=== PATIENT | female | born 1995 | race Caucasian/White ===

== ENCOUNTER 2017-01-25 10:40 | Emergency (ER) | payer OTHER ==
[2017-01-25] MEDS ORDERED: Ketorolac INJ* 30 MG/ML 1 ML VIAL ONE (11:27)
[2017-01-25] MEDS ORDERED: Ketorolac INJ* 30 MG/ML 1 ML VIAL IV PUSH ONE (11:27)
[2017-01-25 11:36] LABS: Hematocrit 39 % (35-47); Hemoglobin 13.1 g/dl (12.0-16.0); Mean Corpuscular HGB Conc 34 g/dl (31-36); Mean Corpuscular Hemoglobin 31 pg (27-31); Mean Corpuscular Volume 91 fL (80-97); Mean Platelet Volume 9 um3 (7.4-10.4); Red Blood Count 4.25 10^6/ul (4.0-5.4); Red Cell Distribution Width 13 % (10.5-15); White Blood Count 5.9 10^3/ul (3.5-10.8)
[2017-01-25 11:50] LABS: Albumin 4.5 g/dL (3.2-5.2); BUN/Creatinine Ratio 21.4 (8-20); C Reactive Protein 1.09 mg/L (< 5.00); Calcium 9.5 mg/dL (8.6-10.3); EGFR African American 135.8 (>60); EGFR Non-African American 105.6 (>60); Globulin 3.2 g/dL (2-4); Potassium 3.8 mmol/L (3.5-5.0); Total Bilirubin 0.4 mg/dL (0.2-1.0); Total Protein 7.7 g/dL (6.4-8.9)
[2017-01-25] MEDS ORDERED: Ondansetron INJ* 2 MG/ML VIAL IV ONE ×2 (12:03→12:57)
[2017-01-25] MEDS ORDERED: Morphine INJ* 4 MG/ML 1 ML CARPUJECT IV ONE ×2 (12:03→12:57)
[2017-01-25] MEDS ORDERED: Dexamethasone IV* 4 MG/ML 1 ML (4 MG) IV SLOW PU ONE (12:59)
[2017-01-25 13:31] LABS: Erythrocyte Sed Rate 14 mm/Hr (0-14)
--- NOTE | 2017-01-25 13:58 | ED ---
meenakshi Garcia Timothy, scribed for Davon Gutierrez MD on 01/25/17 at 1107 . Upper Extremity Pain - HPI Summary HPI Summary: Jolynn Singh is a 21 yo female presenting to [facility] with 8/10 pain and rash over the right shoulder since this am. She states the rash does not itch. She is also experiencing chills and is diaphoretic. She also has decreased responsiveness and sensation in the right 4th and 5th digits. She also states that she experienced chest pressure yesterday after the MRI, which has been resolving but has not resolved completely. she states she had an MRI with join injection yesterday and is concerned her shoulder may be infected may be infected. She has had both ankle and knee surgery in the past, but denies any other PMHx. - History of Current Complaint Stated Complaint: POSS INFECTION /RT SHOULDER Time Seen by Provider: 01/25/17 11:01 Hx Obtained From: Patient Mechanism Of Injury: Direct Blow - injection Onset/Duration: Started Hours Ago, Still Present Timing: Constant Severity Initially: Moderate Severity Currently: Moderate Pain Location: Shoulder - right Character: Sharp Associated Signs & Symptoms: Positive: Redness - Allergies/Home Medications Allergies/Adverse Reactions: Allergies Allergy/AdvReac Type Severity Reaction Status Date / Time peanuts Allergy Unknown Uncoded 09/08/14 04:49 Reaction Details PMH/Surg Hx/FS Hx/Imm Hx Sensory History: Reports: Hx Contacts or Glasses Opthamlomology History: Reports: Hx Contacts or Glasses Neurological History: Comment Only: Other Neuro Impairments/Disorders - r/o meningitis - Surgical History Surgery Procedure, Year, and Place: L ankle surgery, knee surgery - Immunization History Date of Tetanus Vaccine: Up to Date Infectious Disease History: No Infectious Disease History: Denies: Traveled Outside the [place] in Last 30 Days - Family History Known Family History: Positive: Hypertension, Other - parkinson's - Social History Alcohol Use: Rare Substance Use Type: Reports: None Smoking Status (MU): Never Smoked Tobacco Review of Systems Positive: Chills, Skin Diaphoresis Eyes: Negative ENT: Negative Positive: Chest Pain Respiratory: Negative Gastrointestinal: Negative Genitourinary: Negative Musculoskeletal: Other - right shoulder pain at MRI joint injection site Positive: Rash - over right shoulder Neurological: Negative Psychological: Normal All Other Systems Reviewed And Are Negative: Yes Physical Exam - Summary Physical Exam Summary: Vital signs: reviewed General: Patient is comfortable lying in stretcher with no signs of distress HEENT: within normal limits Lungs: CTA B/L CVS: S1 & S2 present. No murmurs appreciated. ABDOMEN: Soft, non-tender. No signs of distention. No rebound no guarding, and no masses palpated. Bowel sounds are normal. EXTREMITIES: Right shoulder with slight generalized swelling, positive rash, e areas of ecchymossi in the right arm. Good pulses in UE and goof capillary refill. Decreased sensation in the right 4th and 5th digit. NEURO: Alert and oriented x 3. No acute neurological deficits. Speech is normal and follows commands. SKIN: Dry and warm Triage Information Reviewed: Yes Vital Signs On Initial Exam: Initial Vitals Temp Pulse Resp BP Pulse Ox 98.5 F 90 16 147/95 100 01/25/17 10:42 01/25/17 10:42 01/25/17 10:42 01/25/17 10:42 01/25/17 10:42 Vital Signs Reviewed: Yes Diagnostics - Vital Signs Vital Signs Temp Pulse Resp BP Pulse Ox 01/25/17 10:42 98.5 F 90 16 147/95 100 - Laboratory Result Diagrams: 01/25/17 11:20 01/25/17 11:20 Lab Statement: Any lab studies that have been ordered have been reviewed, and results considered in the medical decision making process. Re-Evaluation - Re-Evaluation First Eval Re-Evaluation Time: 12:51 Change: Unchanged Comment: Pt is still in a lot of pain. Second Eval Re-Evaluation Time: 13:21 Change: Unchanged Comment: Pt is still in a lot of pain. Pt was informed of consult with Dr. Garland's nurse Course/Dx - Course Assessment/Plan: Jolynn Singh is a 21 yo female presenting to [facility] with 8/ 10 pain and rash over the right shoulder since this am. She states the rash doesn't itch. She is also experiencing chills and is diaphoretic. She also has decreased responsiveness and sensation in the right 4th and 5th digits. She also states that she experienced chest pressure yesterday after the MRI, which has been resolving but has not resolved completely. she states she had an MRI with joint injection yesterday and is concerned her shoulder may be infected may be infected. She has had both ankle and knee surgery in the past, but denies any other PMHx. Blood work is found to be wnl. No increase in temperature, no increase in CRP and no increase in ESR. Patient was given Toradol for pain, Zofran and 2 doses of Morphine for pain. I discussed the case with Dr. Garland true his nurse and he recommends for the patient to be discharged home with pain medication and for the patient to f/u with him tomorrow AM. I discussed the plan with the patient and she agrees although she not very happy with Dr. Garland. She was given a prescription for Ulysses. I discussed all the findings and test results with the patient. Patient was instructed to return to the emergency room immediately if any of the symptoms return or worsens. Or if she develops any fever, rigors or any other symptom. Plan of care was discussed with the patient and understands and agrees. All questions were answered at patient satisfaction. There were no further complaints or concerns. Lung exam before discharge: CTA B/L. Good air exchange. No wheezing or crackles heard. CVS: S1 and S2 present. No murmurs appreciated. Patient is alert and oriented x 3. Patient is hemodynamically stable. Patient will be discharged home with follow up telecommunication equipment repairer in the next 2-3 days - Diagnoses Differential Diagnosis/HQI/PQRI: Positive: Arthritis, Bursitis, Hematoma, Strain , Sprain Provider Diagnoses: Shoulder pain - Physician Notifications Discussed Care Of Patient With: [id number] - nurse of Dr. Garlnad (orthopedics) - Discussed Pt condition and pain management. Recommends Pt be discharged and be seen tomorrow Discharge - Discharge Plan Condition: Stable Disposition: HOME Prescriptions: HYDROcodone/ACETAMIN 5-325 MG* [Ulysses 5-325 TAB*] 1 tab PO Q8H PRN #10 tab MDD max 3 tabs / day PRN Reason: Pain Patient Education Materials: Shoulder Pain (ED) Referrals: Minnie Hong MD [Primary Care Provider] - Additional Instructions: Follow up with Dr. Garland tomorrow regarding your visit to the emergency department today. Return to the emergency department with any new or recurring symptoms. The documentation as recorded by the meenakshi green Timothy accurately reflects the service I personally performed and the decisions made by me, Davon Gutierrez MD.
[2017-01-25 15:22] VITALS: BP 149/102
== END 2017-01-25 15:18 | disposition home or self-care (01) ==
LOC: ED 10:40
DX: R21 Rash and other nonspecific skin eruption (principal); R07.9 Chest pain, unspecified; M25.519 Pain in unspecified shoulder
CPT/HCPCS: 36415; 80053; 83605; 85025; 85652; 86140; 87040; 87502; 96374; 96375; 99282; J1100; J1885; J2270; J2405

== ENCOUNTER 2017-01-28 18:13 | Emergency (ER) | payer OTHER ==
--- NOTE | 2017-01-28 19:52 | ED ---
Upper Extremity Pain - HPI Summary HPI Summary: Pt here w/ worsening of Rt shoulder pain. Had an MRI arthrogram on Tuesday w/ contrast injection d/t frequent dislocations per pt - was assesing integrity of structures to see if she was a candidate for surgical repair. Had pain after procedure and came to ED on 01/25 d/t rash at injection site, intractable pain and paresthesia of 4th and 5th digits. She was provided w/ IV morphine and d/c' d w/ norco 5/325mg. She reports norco was helping until this morning when she woke. Tried norco around 16:00 today w/o relief. Has not had any NSAID's. Also took benadryl around 16:00 today. Denies acute trauma or change in activity. Pain is worse w/ moving shoulder. Rash is worse per pt despite taking benadryl. Denies swelling, bruising, fever, chills, shortness of breath, facial swelling, difficulty swallowing, rash in other locations. Pt reports she went to f/u on Tuesday w/ Dr. Garland and "he reads the imaging himself and there wasn't anything he could do about it" (not clear of details of findings). She states he is no longer her doctor as she fired him. Only allergy she's aware of is peanuts. 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 Has been using heat which doesn't help but doesn't hurt. - History of Current Complaint Chief Complaint: EDExtremityUpper Stated Complaint: SOB,RASH Time Seen by Provider: 01/28/17 18:53 Hx Obtained From: Patient - Allergies/Home Medications Allergies/Adverse Reactions: Allergies Allergy/AdvReac Type Severity Reaction Status Date / Time peanuts Allergy Unknown Uncoded 09/08/14 04:49 Reaction Details PMH/Surg Hx/FS Hx/Imm Hx Previously Healthy: Yes Endocrine/Hematology History: Denies: Hx Anticoagulant Therapy, Hx Blood Disorders, Hx Unexplained Bleeding , Autoimmune Disease Respiratory History: Denies: Hx Asthma, Hx Seasonal Allergies Musculoskeletal History: Reports: Other Musculoskeletal History - H/o Rt shoulder dislocations Sensory History: Reports: Hx Contacts or Glasses Opthamlomology History: Reports: Hx Contacts or Glasses Neurological History: Comment Only: Other Neuro Impairments/Disorders - r/o meningitis Psychiatric History: Reports: Other Psychiatric Issues/Disorders - takes methylphenidate - Surgical History Surgery Procedure, Year, and Place: L ankle surgery, knee surgery - Immunization History Date of Tetanus Vaccine: Up to Date Infectious Disease History: No Infectious Disease History: Denies: Hx of Known/Suspected MRSA, Traveled Outside the [place] in Last 30 Days - Family History Known Family History: Positive: Hypertension, Other - parkinson's - Social History Occupation: Employed Full-time - diesel technician, Student Lives: With Family Alcohol Use: Rare Hx Substance Use: Yes - not current Substance Use Type: Reports: Other - h/o narcotics (hydrocodone) s/p ankle surgery Hx Tobacco Use: No Smoking Status (MU): Never Smoked Tobacco Review of Systems Negative: Fever, Chills, Fatigue Negative: Chest Pain Negative: Shortness Of Breath Negative: Abdominal Pain, Vomiting, Diarrhea, Nausea Positive: no symptoms reported Musculoskeletal: Other - see HPI Positive: Rash - see HPI Neurological: Other - see HPI Positive: Anxious All Other Systems Reviewed And Are Negative: Yes Physical Exam Triage Information Reviewed: Yes Vital Signs On Initial Exam: Initial Vitals Temp Pulse Resp BP Pulse Ox 97.3 F 106 16 149/88 100 01/28/17 18:15 01/28/17 18:15 01/28/17 18:15 01/28/17 18:15 01/28/17 18:15 Vital Signs Reviewed: Yes Appearance: Positive: Well-Appearing, Well-Nourished, Pain Distress Skin: Positive: Warm, Dry - papular erythematous rash over Rt shoulder - injection site identified and does not appear more affected that surrounding skin - no fever to touch, no edema, no skin breakdown; healing yellow bruise over bicep region Head/Face: Positive: Normal Head/Face Inspection Eyes: Positive: Normal, EOMI ENT: Positive: Hearing grossly normal, Pharynx normal - mucosa moist Respiratory/Lung Sounds: Positive: Clear to Auscultation, Breath Sounds Present. Negative: Rales, Rhonchi, Subcutaneous Emphysema, Tracheal Deviation, Wheezes Cardiovascular: Positive: Normal, RRR, Pulses are Symmetrical in both Upper and Lower Extremities - radial pulse +2, cap refill < 2 secs Abdomen Description: Positive: Nontender, No Organomegaly, Soft Bowel Sounds: Positive: Present Musculoskeletal: Positive: Strength/ROM Intact, Pain @ - w/ shoulder abduction past 90 degrees; pain w/ bicep palpation and w/ elbow ROM Neurological: Positive: Normal, Alert, Oriented to Person Place, Time, CN Intact II-III, Other - motor intact; pt reports decreased senastion over 4th and 5th digits on Rt hand Psychiatric: Positive: Anxious - crying, writhing in bed at times, interupts her own sentences w/ crying - upon return to room, pt is more calm, not crying and appears more comfortable (even without meds) - discussed plan of treating inflammation and possible allergic reaction to which she is agreeable but states toradol does nothing for her. Diagnostics - Vital Signs Vital Signs Temp Pulse Resp BP Pulse Ox 01/28/17 18:15 97.3 F 106 16 149/88 100 - Laboratory Lab Statement: Any lab studies that have been ordered have been reviewed, and results considered in the medical decision making process. Re-Evaluation - Re-Evaluation First Eval Change: Unchanged - sleepy from allergy med cocktail but reports pain is same Course/Dx - Course Course Of Treatment: Pt presents w/ persistent Rt shoulder pain s/p MRI arthrogram Tuesday. Was seen here in ED Tuesday and provided w/ IV morphine (4mg x 2) and norco 5-325mg x 4 days. She is here again today as she reports her pain is worse this morning, despite norco and benadryl. After speaking w/ Dr. James (ortho on-call for Dr. Garland), diff dx includes infection however this was ruled out upon previous ED visit w/ labs, vital and clinical presentation and again today w/ no new sx to indicate infection. She could also have hemarthrosis however doubtful and pt's presentation is w/o signs of hemarthrosis and no h/o bleeding d/o, easy bruising/bleeding - recent CBC WNL, vitals normal and her joint is not restricted w/ movement d/t edema nor does she appear to have edema. We discussed this is most likely inflammation, caused by procedure itself and/or possible reaction to any/all of the fluids injected ( dye, lidocaine, contrast). Tried a course of solumedrol, pepcid, benadryl and toradol per IV and pt reports this only made her sleepy, but still has pain. Rash is less red so will continue prednisone, benadryl and ibuprofen. Given her 4th and 5th digit paresthesia and pain w/ movement which sounds like nerve pain , decided to provide pt w/ gabapentin outpt and close f/u w/ ortho. She has an appt w/ Dr. Patino at [place] on Tuesday. After discussing h/o narcotic abuse, pt states she does not feel she's having any new cravings, simply in pain and wants it so stop. Provided with 1 4mg IV dose morphine prior to d/c to bridge gabapentin initiation. No narcotics upon d/c. Pt agrees w/ plan. Narcotics were not sent home w/ pt as she voiced this was a problem for her in the past. Advised to f/u w/ PCP or MH if she felt she was having cravings d/t recent tx's - denies this is an issue at this time, but agrees to f/u if this becomes an issue. Also advised using any substances until sx clear to reduce risk of mood lability, confusion pain w/ emotional unrest as she takes methylphenidate for ADD and SSRI. Pt agrees w/ this plan as well. Reviewed danger s/sx of when to return to ED. - Diagnoses Provider Diagnoses: Right shoulder pain - Physician Notifications Discussed Care Of Patient With: Dr. James (ortho [place]) - on-call for Dr. Garland ' group - states he has no records of pt's f/u on Tuesday one way or the other re: her attendance and can't acess report of MRI. Furthermore, he does recall overhearing conversation w/ Dr. Garland and Dr. Gutierrez when she came to ED on 01/25 and is concerned she may be seeking. Spoke w/ Dr. Gutierrez as well who raised this concern as he saw her moving affected arm well when she wasn't aware he was watching. When asked about her h/o narcotic abuse, states this was with hydrocodone and she ran into trouble when she was sent home w/ this. Discharge - Discharge Plan Condition: Stable Disposition: HOME Prescriptions: Gabapentin CAP(*) [Neurontin 300 CAP(*)] 300 mg PO TID #15 cap predniSONE TAB* [Deltasone TAB*] 40 mg PO DAILY #4 tab Patient Education Materials: Shoulder Pain (ED), General Allergic Reaction (ED) Referrals: Minnie Hong MD [Primary Care Provider] - Additional Instructions: Your pain after procedure is suspected to be from inflammation. It is recommended that you complete prednisone as rash appears better after taking this. You may continue benadryl. It is also recommended you take ibuprofen 600mg every 6 hours with food as this helps with physiologic inflammation. You will also be provided with gabapentin, a pain medication, to reduce pain symptoms and help you sleep. This medication can cause drowsiness - do not operate machinery while taking. You were also provided with a shoulder immobilizer as you report a history of recurrent dislocation. This will reduce risk of dislocation, triggering pain. Keep follow-up appointment with Cyrus Suarez orthopedist, on Tuesday. If you decide to return to Dr. Garland' office, he is in on Tuesday. *If you develop fever, chills, chest pain, difficulty breathing in the meantime return to ED
[2017-01-28] MEDS ORDERED: methylPREDNISolone 125 MG* 2 ML VIAL IV ONE (19:55)
[2017-01-28] MEDS ORDERED: Ketorolac INJ* 30 MG/ML 1 ML VIAL IV PUSH ONE (19:55)
[2017-01-28] MEDS ORDERED: Gabapentin CAP(*) 300 MG PO ONE (19:56)
[2017-01-28] MEDS ORDERED: diPHENhydraMINE IV* 50 MG/ML 1 ml VIAL (BENADRYL) IV ONE (19:57)
[2017-01-28] MEDS ORDERED: Famotidine IV* 10 MG/ML 2 ML (20 mg) IV SLOW PU ONE (19:57)
[2017-01-28 21:11] VITALS: BP 133/72
[2017-01-28] MEDS ORDERED: Morphine INJ* 4 MG/ML 1 ML CARPUJECT IV ONE (21:14)
[2017-01-28] MEDS ORDERED: Morphine INJ* 2 MG/ML 1 ML CARPUJECT IV ONE (21:31)
== END 2017-01-28 21:51 | disposition home or self-care (01) ==
LOC: ED 18:13
DX: M25.511 Pain in right shoulder (principal); R21 Rash and other nonspecific skin eruption; F98.8 Other specified behavioral and emotional disorders with onset usually occurring in childhood and adolescence
CPT/HCPCS: 96374; 96375; 96376; 99282; J1200; J1885; J2270; J2930

== ENCOUNTER 2018-01-04 14:06 | Emergency (ER) | payer OTHER ==
--- NOTE | 2018-01-04 14:49 | ED ---
- HPI Summary HPI Summary: 22-year-old female presents with body fluid exposure to her left eye today. States she was suctioning another patient and blood insulin and landed in her left eye. She washed her eye out for 10 minutes. She denies any change in vision. Her tetanus is up-to-date. Source patient is a low risk patient. - History of Current Complaint Stated Complaint: EXPOSURE TO BODILY FLUID Time Seen by Provider: 01/04/18 14:29 PMH/Surg Hx/FS Hx/Imm Hx Endocrine/Hematology History: Denies: Hx Anticoagulant Therapy, Hx Blood Disorders, Hx Unexplained Bleeding Respiratory History: Denies: Hx Asthma, Hx Seasonal Allergies Musculoskeletal History: Reports: Other Musculoskeletal History - H/o Rt shoulder dislocations Sensory History: Reports: Hx Contacts or Glasses Opthamlomology History: Reports: Hx Contacts or Glasses Neurological History: Comment Only: Other Neuro Impairments/Disorders - r/o meningitis Psychiatric History: Reports: Other Psychiatric Issues/Disorders - takes methylphenidate - Surgical History Surgery Procedure, Year, and Place: L ankle surgery, knee surgery - Immunization History Date of Tetanus Vaccine: Up to Date Infectious Disease History: Denies: Hx of Known/Suspected MRSA - Family History Known Family History: Positive: Hypertension, Other - parkinson's - Social History Alcohol Use: Rare Hx Substance Use: Yes - not current Substance Use Type: Reports: Other - h/o narcotics (hydrocodone) s/p ankle surgery Hx Tobacco Use: No Smoking Status (MU): Never Smoked Tobacco Review of Systems Negative: Fever Positive: Other - body fluid exposure eyes Negative: Chest Pain Negative: Shortness Of Breath All Other Systems Reviewed And Are Negative: Yes Physical Exam Triage Information Reviewed: Yes Vital Signs Reviewed: Yes Appearance: Positive: Well-Appearing Skin: Positive: Warm, Dry Head/Face: Positive: Normal Head/Face Inspection Eyes: Positive: Normal, EOMI, SHANTANU, Conjunctiva Inflammed - left Respiratory/Lung Sounds: Positive: Clear to Auscultation, Breath Sounds Present Cardiovascular: Positive: Normal, RRR Musculoskeletal: Positive: Normal Neurological: Positive: Normal Psychiatric: Positive: Normal Diagnostics - Laboratory Result Diagrams: 01/04/18 14:35 01/04/18 14:35 Lab Statement: Any lab studies that have been ordered have been reviewed, and results considered in the medical decision making process. [place] Course/Dx - Course Course Of Treatment: 22-year-old female presents with body fluid exposure to her left eye today. States she was suctioning another patient and blood insulin and landed in her left eye. She washed her eye out for 10 minutes. Her tetanus is up-to-date. Source patient is a low risk patient. On examining conjunctiva injected. Discuss options due to source patient HIV being negative ([id number]) will not start PEP. The patient understands and agrees with plan. - Diagnoses Provider Diagnoses: Employee exposure to body fluids Discharge - Discharge Plan Condition: Good Disposition: HOME Referrals: Minnie Hong MD [Primary Care Provider] - Additional Instructions: Follow up with primary within 3 months for repeat testing
[2018-01-04 14:51] LABS: ABS Basophils 0 10^3/ul (0-0.2); ABS Eosinophils 0.1 10^3/ul (0-0.6); ABS Lymphocytes 2.7 10^3/ul (1.0-4.8); ABS Monocytes 0.4 10^3/ul (0-0.8); ABS Nucleated RBC 0 10^3/ul; Eosinophil % 1.5 % (0-6); Hematocrit 40 % (35-47); Hemoglobin 13.9 g/dl (12.0-16.0); Lymphocyte % 37.5 % (25-47); Mean Corpuscular HGB Conc 35 g/dl (31-36); Mean Corpuscular Hemoglobin 31 pg (27-31); Mean Corpuscular Volume 91 fL (80-97); Mean Platelet Volume 8 um3 (7.4-10.4); Nucleated Red Blood Cells % 0; Platelet Count 251 10^3/ul (150-450); Red Blood Count 4.44 10^6/ul (4.0-5.4); Red Cell Distribution Width 12 % (10.5-15); White Blood Count 7.2 10^3/ul (3.5-10.8)
[2018-01-04 15:09] LABS: EGFR Non-African American 87.2 (>60)
[2018-01-04 15:19] VITALS: BP 124/72
== END 2018-01-04 15:17 | disposition home or self-care (01) ==
LOC: ED 14:06
DX: Z77.21 Contact with and (suspected) exposure to potentially hazardous body fluids (principal)
CPT/HCPCS: 36415; 80053; 84702; 85025; 86703; 86706; 86803; 87340; 99282

== ENCOUNTER 2018-01-08 12:21 | Emergency (ER) | payer OTHER ==
[2018-01-08 13:12] VITALS: BP 138/93
--- NOTE | 2018-01-08 14:03 | UC ---
Roland Garcia Stephanie, scribed for Fazal Childers MD on 01/08/18 at 1342 . FLU HPI - HPI Summary HPI Summary: The pt is a 22 y/o F presenting to with influenza-like symptoms that began yesterday. Symptoms include CASTILLO, sore throat, cough, rhinorrhea, nasal congestion , myalgia and ear ache. - History of Current Complaint Chief Complaint: UCRespiratory Stated Complaint: FEVER, CHILLS AND SORE THROAT Time Seen by Provider: 01/08/18 13:29 Hx Obtained From: Patient Hx Last Menstrual Period: one month ago Onset/Duration: Gradual Onset, Lasting Days - 1, Still Present Severity Currently: None Pain Intensity: 0 Pain Scale Used: 0-10 Numeric Associated Signs & Symptoms: Positive: Myalgia, Cough, Sore Throat, Nasal Congestion, Headache Related Hx: Possible Flu/Infectious Exposure - Allergy/Home Medications Allergies/Adverse Reactions: Allergies Allergy/AdvReac Type Severity Reaction Status Date / Time peanuts Allergy Anaphylatic Uncoded 01/08/18 13:12 Shock PMH/Surg Hx/FS Hx/Imm Hx - Additional Past Medical History Additional PMH: Juvenile rheumatoid arthritis Other History Of: Negative For: Anticoagulant Therapy - Surgical History Surgical History: Yes Surgery Procedure, Year, and Place: L ankle surgery, knee surgery - Family History Known Family History: Positive: Hypertension, Other - parkinson's - Social History Occupation: Student Lives: Alone Alcohol Use: Rare Substance Use Type: Prescribed Smoking Status (MU): Never Smoked Tobacco Review of Systems Constitutional: Negative Skin: Negative Eyes: Negative ENT: Sore Throat, Ear Ache, Nasal Discharge, Sinus Congestion Respiratory: Cough Cardiovascular: Negative Gastrointestinal: Negative Genitourinary: Negative Neurovascular: Negative Musculoskeletal: Myalgia Neurological: Headache Psychological: Negative All Other Systems Reviewed And Are Negative: Yes Physical Exam Triage Information Reviewed: Yes Vital Signs: Initial Vital Signs Temp 98.6 F 01/08/18 13:09 Pulse 109 01/08/18 13:09 Resp 18 01/08/18 13:09 BP 138/93 01/08/18 13:09 Pulse Ox 99 01/08/18 13:09 Vital Signs Reviewed: Yes - Additional Comments General: well-appearing, no pain distress Skin: warm, color reflects adequate perfusion, dry Head: normal Eyes: EOMI, SHANTANU ENT: TM's normal, Tonsils 2+ with erythema Neck: positive anterior cervical lymphadenopathy Respiratory: CTA, breath sounds present Cardiovascular: RRR Abdomen: soft, nontender Bowel: present Musculoskeletal: normal, strength/ROM intact Neurological: normal, sensory/motor intact, A&O x3 Psychological: affect/mood appropriate Flu Course/Dx - Course Course Of Treatment: Medications reviewed. BP noted and advised to follow up with PCP. - Differential Dx/Diagnosis Provider Diagnoses: INFLUENZA LIKE ILLNESS Discharge - Discharge Plan Condition: Stable Disposition: HOME Patient Education Materials: Viral Syndrome (ED) Forms: *Work Release Referrals: Minnie Hong MD [Primary Care Provider] - Additional Instructions: FOLLOW UP WITH YOUR DOCTOR. RETURN TO THE EMERGENCY DEPARTMENT FOR ANY WORSENING OF YOUR CONDITION OR QUESTIONS OR CONCERNS. YOUR BLOOD PRESSURE WAS ELEVATED DURING TODAY'S VISIT; FOLLOW UP WITH YOUR PCP WITHIN ONE WEEK FOR FURTHER EVALUATION. The documentation as recorded by the Roland green Stephanie accurately reflects the service I personally performed and the decisions made by me, Fazal Childers MD.
== END 2018-01-08 14:10 | disposition home or self-care (01) ==
LOC: UCEAST 12:21
DX: J11.1 Influenza due to unidentified influenza virus with other respiratory manifestations (principal)
CPT/HCPCS: 87502; 87651; 99211; G0463

== ENCOUNTER 2018-04-02 14:52 | Emergency (ER) | payer OTHER ==
[2018-04-02] MEDS ORDERED: Ibuprofen TAB* 600 MG PO ONE (16:48)
--- NOTE | 2018-04-02 17:22 | RAD ---
Indication: Left pain. 4 views of left knee demonstrates no fracture. No other bone or joint abnormalities noted. No joint effusion is noted. IMPRESSION: No fracture of the left knee is noted.
[2018-04-02 18:00] VITALS: BP 105/63
--- NOTE | 2018-04-02 18:01 | ED ---
Lower Extremity - HPI Summary HPI Summary: Patient is a 22-year-old female who presents to the emergency department for left knee injury that occurred just prior to arrival. Patient states [place] was at the park when her leg was planted and a dog ran into the lateral aspect of her left leg and knee twisted. Unable to bear full weight. No other injuries were sustained. Symptoms are mild in severity. Walking and bending the makes symptoms worse. Nothing makes symptoms better. - History of Current Complaint Chief Complaint: EDExtremityLower Stated Complaint: POSSIBLE LT KNEE INJURY Time Seen by Provider: 04/02/18 16:33 Hx Obtained From: Patient Hx Last Menstrual Period: one month ago Pain Intensity: 5 Pain Scale Used: 0-10 Numeric - Allergies/Home Medications Allergies/Adverse Reactions: Allergies Allergy/AdvReac Type Severity Reaction Status Date / Time peanut Allergy Severe Anaphylatic Verified 04/02/18 14:59 Shock Home Medications: Home Medications Dextroamphetamine/Amphetamine [Adderall Xr 30 mg Capsule] 30 mg PO DAILY [History Confirmed 04/02/18] PMH/Surg Hx/FS Hx/Imm Hx Previously Healthy: Yes Endocrine/Hematology History: Denies: Hx Anticoagulant Therapy, Hx Blood Disorders, Hx Unexplained Bleeding Respiratory History: Denies: Hx Asthma, Hx Seasonal Allergies Musculoskeletal History: Reports: Other Musculoskeletal History - H/o Rt shoulder dislocations Sensory History: Reports: Hx Contacts or Glasses Opthamlomology History: Reports: Hx Contacts or Glasses Neurological History: Comment Only: Other Neuro Impairments/Disorders - r/o meningitis Psychiatric History: Reports: Other Psychiatric Issues/Disorders - takes methylphenidate - Surgical History Surgery Procedure, Year, and Place: L ankle surgery, knee surgery - Immunization History Date of Tetanus Vaccine: Up to Date Infectious Disease History: No Infectious Disease History: Denies: Hx of Known/Suspected MRSA, Traveled Outside the [place] in Last 30 Days - Family History Known Family History: Positive: Hypertension, Other - parkinson's - Social History Occupation: Employed Part-time, Student Lives: With Family Alcohol Use: Rare Hx Substance Use: Yes - not current Substance Use Type: Reports: Prescribed Substance Use Comment - Amount & Last Used: adderall 1145 Hx Tobacco Use: No Smoking Status (MU): Never Smoked Tobacco Review of Systems Positive: Other - left knee pain Negative: Weakness, Paresthesia, Numbness All Other Systems Reviewed And Are Negative: Yes Physical Exam Triage Information Reviewed: Yes Vital Signs On Initial Exam: Initial Vitals Temp Pulse Resp BP Pulse Ox 99.4 F 122 20 136/107 96 04/02/18 14:56 04/02/18 14:56 04/02/18 14:56 04/02/18 14:56 04/02/18 14:56 Vital Signs Reviewed: Yes Appearance: Positive: Pain Distress - Patient lying in bed, tearful. Significant other present. Skin: Positive: Warm, Dry Head/Face: Positive: Normal Head/Face Inspection Eyes: Positive: Normal Neck: Positive: Supple Musculoskeletal: Positive: Other - Diffuse anterior pain to the left knee. Significant pain with flexion and extension. No effusion. No increased laxity noted. Leg is neurovascularly intact. No proximal or distal injuries. Neurological: Positive: Normal, CN Intact II-III Psychiatric: Positive: Normal Procedures - Splinting Pre-Made Type: knee immobilizer Pre-Proc Neuro Vasc Exam: normal Post-Proc Neuro Vasc Exam: normal Diagnostics - Vital Signs Vital Signs Temp Pulse Resp BP Pulse Ox 04/02/18 17:59 98.4 F 96 16 105/63 95 04/02/18 14:56 99.4 F 122 20 136/107 96 - Laboratory Lab Statement: Any lab studies that have been ordered have been reviewed, and results considered in the medical decision making process. Lower Extremity Course/Dx - Course Course Of Treatment: Patient presenting for evaluation of twisting knee injury. Motrin ordered. X-rays negative for fracture or acute changes, reading per radiology. We'll immobilize and crutch knee. Patient would like to follow-up with Dr. Ibrahim for orthopedics. Advised to call office tomorrow to schedule an appointment for further evaluation and possible ligamental damage. Advised to ice and elevate. Tylenol or Motrin for pain as directed. - Diagnoses Differential Diagnosis/HQI/PQRI: Positive: Dislocation, Fracture (Closed), Sprain, Strain, Tendonitis Provider Diagnoses: Knee injury Discharge - Sign-Out/Discharge Documenting (check all that apply): Discharge/Admit/Transfer - Discharge Plan Condition: Good Disposition: HOME Patient Education Materials: Knee Pain (ED) Referrals: Brian Ibrahim MD [Medical Doctor] - Minnei Hong MD [Primary Care Provider] - Additional Instructions: Call orthopedics tomorrow for a follow up appointment Wear splint and use crutches Ice and elevate NSAIDS for pain as directed - Billing Disposition and Condition Condition: GOOD Disposition: HOME
== END 2018-04-02 18:00 | disposition home or self-care (01) ==
LOC: ED 14:52
DX: S89.92XA Unspecified injury of left lower leg, initial encounter (principal); X50.0XXA Overexertion from strenuous movement or load, initial encounter; Y92.9 Unspecified place or not applicable
CPT/HCPCS: 99282; A9270-GY